=== PATIENT | female | born 1935 | race Caucasian/White ===

== ENCOUNTER 2021-05-17 04:42 | Inpatient (IN) ==
[2021-05-17] MEDS ORDERED: PIPERACILLIN/TAZOBACTAM 3,375 MG in SODIUM CHLORIDE 0.9% 100 ML IV STA (05:26)
[2021-05-17] MEDS ORDERED: SODIUM CHLORIDE 0.9% 500 ML IV STA (05:26)
[2021-05-17 05:43] LABS: ABG Base Excess 3.1 MMOL/L (-2.5-2.5); ABG HCO3 25.3 MMOL/L (20-26); ABG Oxygen Saturation 93.3 % (95-100); ABG PCO2 30.5 MM HG (35-48); ABG PH 7.536 (7.35-7.45); ABG PO2 64.8 MM HG (80-95); ABG TCO2 26.2 MMOL/L (23-27)
[2021-05-17 05:55] LABS: Basophils % 0.3 % (0.0-0.8); Eosinophils # 0.1 10*3/uL (0.0-0.87); Eosinophils % 0.6 % (0.00-10.9); Hematocrit 34.3 VOL% (35.7-47.0); Immature Granulocytes % 0.7 %; Immature Granulocytes Absolute 0.07 #; Lymphocytes % 9.7 % (21.3-54.2); Mean Corpuscular HGB Conc 32.1 GM/DL (32-36); Mean Corpuscular Volume 84.7 FL (87-102); Mean Platelet Volume 11.4 FL (9.6-12.0); Monocytes % 6.5 % (1.7-12.7); Neutrophils % 82.2 % (38.7-73.9); Platelet Count 204 T/CUMM (130-400); Red Blood Count 4.05 MC/CUMM (3.8-5.5); Red Cell Distribution Width 14.9 % (9.3-17.3); White Blood Count 10.5 T/CUMM (4-12)
[2021-05-17 05:55] LABS: Bacteria,Urine Many /HPF (Few); Mucus,Urine Few /LPF (Occasional); Protein,Urine 100 mg/dL (Negative); RBC,Urine 25-30 /HPF (0-4); Squamous Epithelial Cell,Urine Occasional /HPF (0-10); Urine Appearance Clear (Clear); Urine Color Yellow (Yellow); Urine Specific Gravity > 1.030 (1.001-1.035); Urine pH 5.5 (4.5-8.0)
[2021-05-17 05:56] LABS: Bilirubin,Urine Small mg/dL (Negative); Blood, Urine Small mg/dL (Negative); Glucose,Urine (UA) Negative (Negative); Ketones,Urine Trace mg/dL (Negative); Nitrite,Urine Positive (Negative)
[2021-05-17 06:02] LABS: INR 1.1; PT Patient Result 12.4 SECS (10.5-12.0)
[2021-05-17 06:05] LABS: Albumin 2.7 G/DL (3.4-5.0); Bilirubin,Total 1.3 MG/DL (0.20-1.00); Calcium 8.4 MG/DL (8.5-10.1); Osmolality,Calculated 284.3 MOS/KG (273-304); Potassium 3.2 MMOL/L (3.5-5.1); Total Protein 5.9 G/DL (6.4-8.2)
[2021-05-17] MEDS ORDERED: ACETAMINOPHEN 325 MG TABLET PO PRN (08:36)
[2021-05-17] MEDS ORDERED: ONDANSETRON 4 MG/2 ML VIAL IV PRN (08:36)
[2021-05-17] MEDS ORDERED: GLUCAGON 1 MG VIAL IM PRN (08:36)
[2021-05-17] MEDS ORDERED: POTASSIUM CHLORIDE 20 MEQ TABLET PO PRN (08:43)
[2021-05-17] MEDS ORDERED: DEXTROSE 10% 250 ML BAG IV PRN (08:46)
[2021-05-17] MEDS: ASPIRIN EC 81 MG TABLET PO SCH (09:12)
[2021-05-17] MEDS: SODIUM CHLOR 0.45% KCL 20 MEQ 20 MEQ/1,000 ML BAG IV SCH ×2 (09:12→18:06)
[2021-05-17] MEDS: ENOXAPARIN 40 MG/0.4 ML SYRINGE SUBCUT SCH (09:13)
[2021-05-17] MEDS: FUROSEMIDE 20 MG TABLET PO SCH (09:13)
[2021-05-17] MEDS: DILTIAZEM CD 120 MG CAPSULE PO SCH (09:18)
[2021-05-17] MEDS ORDERED: hydrALAZINE 20 MG/1 ML VIAL IV PRN (10:52)
[2021-05-17] MEDS: CYPROHEPTADINE 4 MG TABLET PO SCH ×3 (11:34→20:33)
[2021-05-17] MEDS: CALCIUM (CARBONATE) 500 MG TABLET PO SCH (11:34)
[2021-05-17] MEDS: MELOXICAM 7.5 MG TABLET PO SCH (11:34)
[2021-05-17] MEDS: LEVOFLOXACIN INJ 750 MG/150 ML PREMIX IV SCH (11:34)
[2021-05-17] MEDS: ALBUTEROL/IPRATROPIUM 3 ML NEB RESP TX SCH ×2 (14:00→19:00)
[2021-05-17] MEDS: DOCUSATE SODIUM 100 MG CAPSULE PO SCH (20:33)
[2021-05-17] MEDS: CITALOPRAM 20 MG TABLET PO SCH (20:33)
[2021-05-18] MEDS: ALBUTEROL/IPRATROPIUM 3 ML NEB RESP TX SCH ×4 (00:45→20:15)
[2021-05-18 06:10] LABS: Basophils % 0.3 % (0.0-0.8); Eosinophils % 0.4 % (0.00-10.9); Hematocrit 31.2 VOL% (35.7-47.0); Hemoglobin 9.8 GM/DL (12.0-16.0); Immature Granulocytes % 0.6 %; Immature Granulocytes Absolute 0.04 #; Lymphocytes # 0.9 10*3/uL (1.4-4.0); Lymphocytes % 13.4 % (21.3-54.2); Mean Corpuscular HGB Conc 31.4 GM/DL (32-36); Mean Corpuscular Volume 86.2 FL (87-102); Mean Platelet Volume 11.9 FL (9.6-12.0); Monocytes % 9.1 % (1.7-12.7); Neutrophils % 76.2 % (38.7-73.9); Platelet Count 184 T/CUMM (130-400); Red Blood Count 3.62 MC/CUMM (3.8-5.5); Red Cell Distribution Width 14.9 % (9.3-17.3); White Blood Count 6.7 T/CUMM (4-12)
[2021-05-18 06:33] LABS: Calcium 8.3 MG/DL (8.5-10.1); Potassium 3.5 MMOL/L (3.5-5.1)
[2021-05-18] MEDS: CYPROHEPTADINE 4 MG TABLET PO SCH ×3 (08:45→20:41)
[2021-05-18] MEDS: PANTOPRAZOLE 40 MG TABLET PO SCH (08:45)
[2021-05-18] MEDS: ENOXAPARIN 40 MG/0.4 ML SYRINGE SUBCUT SCH (08:46)
[2021-05-18] MEDS: FUROSEMIDE 20 MG TABLET PO SCH (08:51)
[2021-05-18] MEDS: ASPIRIN EC 81 MG TABLET PO SCH (08:51)
[2021-05-18] MEDS: DILTIAZEM CD 120 MG CAPSULE PO SCH (08:51)
[2021-05-18] MEDS: MELOXICAM 7.5 MG TABLET PO SCH (08:52)
[2021-05-18] MEDS: CALCIUM (CARBONATE) 500 MG TABLET PO SCH (08:52)
[2021-05-18] MEDS: SODIUM CHLOR 0.45% KCL 20 MEQ 20 MEQ/1,000 ML BAG IV SCH ×2 (09:09→17:56)
[2021-05-18] MEDS: LEVOFLOXACIN INJ 750 MG/150 ML PREMIX IV SCH ×2 (09:10→09:46)
[2021-05-18] MEDS ORDERED: FUROSEMIDE 20 MG/2 ML VIAL IV ONE (09:34)
[2021-05-18] MEDS: cefTRIAXone 1,000 MG in SODIUM CHLORIDE 0.9% 100 ML IV SCH (11:34)
[2021-05-18] MEDS: CITALOPRAM 20 MG TABLET PO SCH (20:41)
[2021-05-18] MEDS: DOCUSATE SODIUM 100 MG CAPSULE PO SCH (20:41)
[2021-05-19] MEDS: ALBUTEROL/IPRATROPIUM 3 ML NEB RESP TX SCH ×2 (00:49→07:04)
[2021-05-19 05:36] LABS: Hematocrit 34.3 VOL% (35.7-47.0); Hemoglobin 10.5 GM/DL (12.0-16.0)
[2021-05-19 05:56] LABS: Calcium 8.3 MG/DL (8.5-10.1); Osmolality,Calculated 282.4 MOS/KG (273-304); Potassium 4.4 MMOL/L (3.5-5.1)
[2021-05-19 08:02] VITALS: BP 93/60
[2021-05-19] MEDS: cefTRIAXone 1,000 MG in SODIUM CHLORIDE 0.9% 100 ML IV SCH (09:23)
[2021-05-19] MEDS: LEVOFLOXACIN INJ 750 MG/150 ML PREMIX IV SCH (09:23)
[2021-05-19] MEDS: MELOXICAM 7.5 MG TABLET PO SCH (09:24)
[2021-05-19] MEDS: ASPIRIN EC 81 MG TABLET PO SCH (09:24)
[2021-05-19] MEDS: DILTIAZEM CD 120 MG CAPSULE PO SCH (09:24)
[2021-05-19] MEDS: ENOXAPARIN 40 MG/0.4 ML SYRINGE SUBCUT SCH (09:24)
[2021-05-19] MEDS: PANTOPRAZOLE 40 MG TABLET PO SCH (09:24)
[2021-05-19] MEDS: CYPROHEPTADINE 4 MG TABLET PO SCH (09:30)
[2021-05-19] MEDS: CALCIUM (CARBONATE) 500 MG TABLET PO SCH (09:31)
[2021-05-19 10:04] LABS: Basophils # 0.1 10*3/uL (0.0-0.2); Basophils % 0.4 % (0.0-0.8); Hematocrit 37.5 VOL% (35.7-47.0); Hemoglobin 11.5 GM/DL (12.0-16.0); Immature Granulocytes % 2.5 %; Immature Granulocytes Absolute 0.33 #; Lymphocytes # 2.2 10*3/uL (1.4-4.0); Lymphocytes % 16.4 % (21.3-54.2); Mean Corpuscular HGB Conc 30.7 GM/DL (32-36); Mean Corpuscular Volume 88.9 FL (87-102); Mean Platelet Volume 11.1 FL (9.6-12.0); Monocytes % 7.9 % (1.7-12.7); Neutrophils % 72.8 % (38.7-73.9); Platelet Count 294 T/CUMM (130-400); Red Blood Count 4.22 MC/CUMM (3.8-5.5); Red Cell Distribution Width 15.4 % (9.3-17.3); White Blood Count 13.2 T/CUMM (4-12)
[2021-05-19] MEDS ORDERED: EPINEPHrine 1 MG/10 ML SYRINGE IV ONE (10:36)
[2021-05-19] MEDS ORDERED: SODIUM BICARBONATE 50 MEQ/50 ML SYRINGE IV ONE (10:38)
[2021-05-19] MEDS: FUROSEMIDE 20 MG TABLET PO SCH (11:41)
== END 2021-05-19 10:59 | disposition expired | DRG 177 ==
LOC: EDBD → EDUNIT# → N.ED 04:42 → N.5E 08:36 → SUATTDRO 08:36 → N.5E 09:40 → N.CC 05-19 10:47
PROVIDERS: ADMIT Phlebology; ATTEND Internal Medicine